=== PATIENT | male | born 1925 | race Caucasian/White ===

== ENCOUNTER 2017-03-23 17:16 | Emergency (ER) | payer OTHER, MEDICARE ==
[~2017-03-23] VITALS: Ht 182.9 cm; Wt 76.0 kg
[~2017-03-23 17:16] MED LIST: ALBU6.7H INH; CILO50TA PO; COUM5TAB PO; COZA50TA PO; DILT180C51 PO; DOCU1CAP39 PO; DUTA1CAP2 PO; EPOG4000 INJ; FERR324T4 PO; GABA400C5 PO; KETO2SHA5 TOP; LANTUSP SQ; LATA.005%O OU; LEVE250 PO; LORA-392 PO; LOSA50 PO; MAGN400 PO; METF500 PO; METO50TA PO; PROT40TA PO; ROSU1TAB8 PO; SYMB160A INH; TAB-TAB PO; TAMS0.4C67 PO; TIMO0.2525 EACH EYE; TRAV0.00 BOTH EYES; VITA10002 PO; VITA400C28 PO; WALKER ROLLING; Z.0.COMMODE-3:1; Z.0.WHEELSTD
[2017-03-23 17:39] VITALS: BP 206/86; PULSE 86; RESP 17; TEMP 97.8; O2SAT 99
--- NOTE | 2017-03-23 18:03 | PD ---
HPI Chief Complaint: Fall Time Seen by Provider: 17:50 Travel History International Travel<30 days: No Contact w/Intl Traveler<30days: No Traveled to known affect area: No History of Present Illness HPI 89-year-old male with multiple medical issues, currently only on aspirin for anticoagulation, presents to the ER today with because he apparently was walking with a walker and lost his balance and fell backward hitting the back of his head. Questionable loss of consciousness. He has a small laceration to the posterior scalp. He denies any other issues or injuries. According to the patient's , he has had multiple recent falls. He was taken off of his blood thinners because of the falls. Modifying Factors: None Associated Signs & Symptoms: Fall, posterior scalp laceration, head injury Risk Factors: Elderly, frequent falls PFSH Past Medical History Hx Anticoagulant Therapy: No (PT STATES HAS BEEN OUT OF COUMADIN SINCE 2 MONTHS AGO) Anemia: Yes (takes procrit) Arthritis: Yes Asthma: No Atrial Fibrillation: Yes Blood Disorders: No Heart Rhythm Problems: Yes (A-FIB) Cancer: No Cardiovascular Problems: Yes High Cholesterol: No Chest Pain: No Congestive Heart Failure: No COPD: Yes Diabetes: Yes Patient Takes Glucophage: No Diminished Hearing: Yes (B hearing aids) Endocrine: Yes Glaucoma: Yes Genitourinary: No Hepatitis: No Hiatal Hernia: No Hypertension: Yes Immune Disorder: No Implanted Vascular Access Dvce: Yes Musculoskeletal: Yes Neurologic: No Psychiatric: No Reproductive: No Respiratory: Yes Immunizations Current: Yes Pneumonia: Yes Sleep Apnea: No Thyroid Disease: Yes (HYPOTHYROIDISM) Tetanus Vaccination: < 5 Years Influenza Vaccination: Yes Past Surgical History Abdominal Surgery: No AICD: No Body Medical Devices: stent in left groin Cardiac Surgery: No Ear Surgery: No Endocrine Surgery: No Eye Surgery: Yes (1979 BOTH EYE CATARACT EXTRACTION.) Genitourinary Surgery: No Gynecologic Surgery: No Joint Replacement: Yes (LEFT KNEE AND STENT) Oral Surgery: No Pacemaker: No Thoracic Surgery: No Tonsillectomy: Yes Other Surgery: Yes Social History Alcohol Use: No Tobacco Use: No Substance Use: No Allergies-Medications (Allergen,Severity, Reaction): Coded Allergies: Lipitor (Verified Allergy, Severe, WEAK MUSCLES, 03/23/17) Levaquin (Verified Allergy, Mild, NAUSEA, 03/23/17) Reported Meds & Prescriptions Reported Meds & Active Scripts Active Reported Ventolin Hfa 18 GM Inh (Albuterol Sulfate) 90 Mcg/Act Aer 2 Puff INH Q6H PRN Symbicort Inh (Budesonide/Formoterol Fumarate) 160-4.5 Mcg/Act Aero 2 Puff INH Q12HR Vitamin D3 (Cholecalciferol) 2,000 Unit Tab 2,000 Units PO DAILY Cilostazol 100 Mg Tab 100 Mg PO BID B12 (Cyanocobalamin) 1,000 Mcg Tab 1,000 Mcg PO DAILY Diltiazem ER 24 HR 240 Mg Caper 240 Mg PO DAILY Dutasteride 0.5 Mg Cap 0.5 Mg PO HS Epogen Inj (Epoetin Bek[place]) 10,000 Unit/Ml Inj 10,000 Units SQ [id number] Ferrous Sulfate 325 Mg Tab 325 Mg PO BID Gabapentin 100 Mg Cap 100 Mg PO DAILY Lantus Inj (Insulin Glargine) 1,000 Unit/10 Ml Vial 15 Units SQ HS Losartan (Losartan Potassium) 50 Mg Tab 50 Mg PO DAILY Proscar (Finasteride) 5 Mg Tab 5 Mg PO HS Do not crush. Metformin (Metformin HCl) 500 Mg Tab 500 Mg PO BIDPC With meals Metoprolol Tartrate 25 Mg Tab 25 Mg PO BID Pantoprazole (Pantoprazole Sodium) 40 Mg Tab 40 Mg PO DAILY Crestor (Rosuvastatin Calcium) 10 Mg Tab 10 Mg PO HS Timolol Opth Drops 0.25 % Soln 1 Drop EACH EYE DAILY Travatan Z Opth Drops (Travoprost) 0.004 % Soln 1 Drop EACH EYE HS Aspirin 81 (Aspirin) 81 Mg Tabdr 81 Mg PO HS Review of Systems Except as stated in HPI: all other systems reviewed are Neg Physical Exam Narrative GENERAL: Well-developed elderly white male patient who is non-acute distress. Awake and oriented 3. On backboard and c-collar in place. SKIN: Focused skin assessment warm/dry. HEAD: Shallow 1 cm laceration to the posterior scalp. Normocephalic. EYES: Pupils equal and round. No scleral icterus. No injection or drainage. Pupils are equal, small, round, reactive to light bilaterally. ENT: No nasal bleeding or discharge. Mucous membranes pink and moist. NECK: Trachea midline. No JVD. C-collar in place. CARDIOVASCULAR: Regular rate and rhythm. No murmur appreciated. RESPIRATORY: No accessory muscle use. Clear to auscultation. Breath sounds equal bilaterally. GASTROINTESTINAL: Abdomen soft, non-tender, nondistended. Hepatic and splenic margins not palpable. Pelvis: Stable and nontender to palpation. MUSCULOSKELETAL: No obvious deformities. No clubbing. No cyanosis. No edema. NEUROLOGICAL: Awake and alert. No obvious cranial nerve deficits. Motor grossly within normal limits. Normal speech. PSYCHIATRIC: Appropriate mood and affect; insight and judgment normal. Data Data Last Documented VS Vital Signs Date Time Temp Pulse Resp B/P Pulse Ox O2 Delivery O2 Flow Rate FiO2 03/23/17 17:42 84 16 96 Room Air 03/23/17 17:39 97.8 206/[address] Brain W/O Iv Contrast(Rout) (03/23/17 17:45) Ct Cerv Spine W/O Contrast (03/23/17 17:50) Metoprolol Tartrate (Lopressor) (03/23/17 19:00) MDM Medical Decision Making Medical Screen Exam Complete: Yes Emergency Medical Condition: Yes Medical Record Reviewed: Yes Interpretation(s) Last 24 hours Impressions Cervical Spine CT 03/23/17 1750 Signed Impressions: Service Date/Time: Thursday, March 23, 2017 18:09 - CONCLUSION: Degenerative changes of the cervical spine as above. No fracture or acute subluxation demonstrated. Carlitos Taylor MD Head CT 03/23/17 2136 Signed Impressions: Service Date/Time: Thursday, March 23, 2017 18:07 - CONCLUSION: Posterior scalp contusion. No bleed or other acute intracranial abnormality. Chronic white matter changes are again noted. Carlitos Taylor MD Differential Diagnosis Fall, head injuryconcussion versus acute intracranial injuries Narrative Course CT of the brain and C-spine did not show any signs of acute injuries. Patient' s blood pressure was elevated in the ER and he was given his evening by mouth blood pressure medication. Planning on releasing the patient with follow-up to primary care physicians with head injury instructions. Return for any worsening in vomiting, mental status changes, and as needed. Plan was discussed with and she states understanding. Diagnosis Primary Impression: Minor closed head injury Additional Impression: HTN (hypertension) Condition: Stable Guanako Meng MD Mar 23, 2017 18:03
--- NOTE | 2017-03-23 18:33 | RADRPT ---
EXAM DATE/TIME: 03/23/2017 18:07 [facility] COMPARISON: CT BRAIN W/O CONTRAST, September 23, 2016, 11:50. INDICATIONS : Fall hit back of head. RADIATION DOSE: 69.15 CTDIvol (mGy) MEDICAL HISTORY : Cardiovascular disease. Chronic obstructive pulmonary disease. Diabetes,hypothyroid,afib SURGICAL HISTORY : Tonsillectomy. ENCOUNTER: Initial ACUITY: 1 day PAIN SCALE: 4/10 LOCATION: cranial TECHNIQUE: Multiple contiguous axial images were obtained of the head. Using automated exposure control and adj ustment of the mA and/or kV according to patient size, radiation dose was kept as low as reasonably a chievable to obtain optimal diagnostic quality images. FINDINGS: CEREBRUM: The ventricles are normal for age. No evidence of midline shift, mass lesion, hemorrhage or acute in farction. No extra-axial fluid collections are seen. Chronic low attenuation seen in the periventric ular white matter. POSTERIOR FOSSA: The cerebellum and brainstem are intact. The 4th ventricle is midline. The cerebellopontine angle i s unremarkable. EXTRACRANIAL: Small parietal scalp hematoma left of midline. SKULL: The calvaria is intact. No evidence of skull fracture. CONCLUSION: Posterior scalp contusion. No bleed or other acute intracranial abnormality. Chronic white matter antwon nges are again noted. Carlitos Taylor MD on March 23, 2017 at 18:31 Board Certified Radiologist. This report was verified electronically.
--- NOTE | 2017-03-23 18:38 | RADRPT ---
EXAM DATE/TIME: 03/23/2017 18:09 [facility] COMPARISON: No previous studies available for comparison. INDICATIONS : Fall hit back of head. RADIATION DOSE: 36.45 CTDIvol (mGy) MEDICAL HISTORY : Cardiovascular disease. Chronic obstructive pulmonary disease. Diabetes,a-fib,hypotyroid SURGICAL HISTORY : Tonsillectomy. ENCOUNTER: Initial ACUITY: 1 day PAIN SCALE: 4/10 LOCATION: neck TECHNIQUE: Volumetric scanning of the cervical spine was performed. Multiplanar reconstructions in the sagittal, coronal and oblique axial planes were performed. Using automated exposure control and adjustment o f the mA and/or kV according to patient size, radiation dose was kept as low as reasonably achievable to obtain optimal diagnostic quality images. FINDINGS: There are couple millimeters of degenerative anterolisthesis at C2/C3 and C3/C4 and a couple millimet ers of degenerative appearing retrolisthesis at C5/C6. No fracture or acute appearing malalignment se en of the cervical spine. Vertebral bodies have normal height. Moderate osteoarthritis with synovial hypertrophy seen anteriorly at C1/C2. There is multilevel disc space narrowing, mild at C2/C3, C3/C4 and C4/C5 and moderate to severe at C5 /C6 and C6/C7. Moderate uncovertebral and facet degenerative changes essentially throughout. No high- grade foraminal or spinal stenosis demonstrated. CONCLUSION: Degenerative changes of the cervical spine as above. No fracture or acute subluxation demonstrated. Carlitos Taylor MD on March 23, 2017 at 18:33 Board Certified Radiologist. This report was verified electronically.
[2017-03-23] MEDS ORDERED: ROSU10 PO (18:58)
[2017-03-23] MEDS ORDERED: GABA100C4 PO (18:58)
[2017-03-23] MEDS ORDERED: PROS5TAB PO (18:58)
[2017-03-23] MEDS ORDERED: VITA200012 PO (18:58)
[2017-03-23] MEDS ORDERED: ASPI-110 PO (18:58)
[2017-03-23] MEDS ORDERED: TRAV0.00 EACH EYE (18:58)
[2017-03-23] MEDS ORDERED: EPOG1000 SQ (18:58)
[2017-03-23] MEDS ORDERED: LANTUS2P SQ (18:58)
[2017-03-23] MEDS ORDERED: FERR325T PO (18:58)
[2017-03-23] MEDS ORDERED: DUTA1CAP2 PO (18:58)
[2017-03-23] MEDS ORDERED: CILO100T PO (18:58)
[2017-03-23] MEDS ORDERED: SYMB160A INH (18:58)
[2017-03-23] MEDS ORDERED: METF500T PO (18:58)
[2017-03-23] MEDS ORDERED: CYAN1TAB24 PO (18:58)
[2017-03-23] MEDS ORDERED: METO25TA3 PO (18:58)
[2017-03-23] MEDS ORDERED: PANT40TA3 PO (18:58)
[2017-03-23] MEDS ORDERED: VENTAER INH (18:58)
[2017-03-23] MEDS ORDERED: TIMO5SOL EACH EYE (18:58)
[2017-03-23] MEDS ORDERED: LOSA50TA PO (18:58)
[2017-03-23] MEDS ORDERED: DILT-48 PO (18:58)
[2017-03-23] MEDS ORDERED: METOPROLOL TARTRATE 25 MG TAB PO ONE (19:00)
[2017-03-23 19:26] VITALS: BP 207/87; PULSE 78; RESP 16; O2SAT 92
[2017-03-23] MEDS ORDERED: cloNIDine HCL 0.1 MG TAB PO ONE (21:00)
[2017-03-23 21:08] VITALS: BP 160/72; PULSE 69; RESP 16; O2SAT 91
--- NOTE | 2017-03-23 22:08 | PD ---
Physical Exam Date Seen by Provider: Mar 23, 2017 Time Seen by Provider: 22:05 Narrative 89-year-old gentleman in came in for head injury secondary to a fall. He was seen by the previous ER physician. Please refer to her history and physical regarding the details. Patient was held in the emergency department since his blood pressure was running high. He had received 25 mg of Lopressor that was ordered by the previous physician. Is asked to follow-up on the blood pressure and that patient could be discharged once the blood pressure was low. However the blood pressure continued to be high in more than 190 systolic. I ordered 0.1 mg of by mouth clonidine. Last blood pressure that I'm aware of was 165 systolic. CAT scan of his head is within normal limits. I'm comfortable discharging him at this point. Patient is awake and answering questions. Data Data Last Documented VS Vital Signs Date Time Temp Pulse Resp B/P Pulse Ox O2 Delivery O2 Flow Rate FiO2 03/23/17 22:12 65 16 154/65 94 Room Air 03/23/17 17:[address] Brain W/O Iv Contrast(Rout) (03/23/17 17:45) Ct Cerv Spine W/O Contrast (03/23/17 17:50) Metoprolol Tartrate (Lopressor) (03/23/17 19:00) Collar [place] (03/23/17 ) Clonidine (Catapres) (03/23/17 21:00) MDM Supervised Visit with MANI: No Diagnosis Primary Impression: Minor closed head injury Additional Impression: HTN (hypertension) Qualified Code: I10 - Essential hypertension Referrals: Primary Care Physician 2 days Additional Instruction: Please return to the ER if the condition worsens or any other new concerns. Follow-up with your primary care in couple days. Take your medications like is supposed to. Med/Other Pt SpecificInfo: No Change to Meds Disposition: 01 DISCHARGE HOME Condition: Stable Chava Toussaint MD Mar 23, 2017 22:08 Chava Toussaint MD Mar 23, 2017 22:08
[2017-03-23 22:12] VITALS: BP 154/65; PULSE 65; RESP 16; O2SAT 94
== END 2017-03-23 22:29 | disposition home or self-care (01) ==
LOC: NEPE 17:16
DX: S09.90XA Unspecified injury of head, initial encounter (principal); S01.01XA Laceration without foreign body of scalp, initial encounter; I10 Essential (primary) hypertension; E11.9 Type 2 diabetes mellitus without complications; E03.9 Hypothyroidism, unspecified; H91.93 Unspecified hearing loss, bilateral; W18.39XA Other fall on same level, initial encounter; Z91.81 History of falling; Z79.4 Long term (current) use of insulin; Z79.82 Long term (current) use of aspirin; Z86.2 Personal history of diseases of the blood and blood-forming organs and certain disorders involving the immune mechanism; Z87.39 Personal history of other diseases of the musculoskeletal system and connective tissue; Z86.79 Personal history of other diseases of the circulatory system; Z87.09 Personal history of other diseases of the respiratory system; Z86.69 Personal history of other diseases of the nervous system and sense organs
CPT/HCPCS: 70450; 72125; 99284; L0150